=== PATIENT | male | born 1965 | race American Indian/Alaskan Native ===

== ENCOUNTER 2019-09-03 07:59 | Day surgery (SDC) | payer MEDICAID ==
--- NOTE | 2019-09-03 09:38 | Anesthesia Day of Surgery ---
Anesthesia Day of Surgery - Day of Surgery Patient Examined: Yes Patient H&P Reviewed: Yes Patient is NPO: Yes
--- NOTE | 2019-09-03 09:40 | Anesthesia Consultation ---
Anesthesia Consult and Med Hx Date of service: 09/03/19 - Airway Anesthetic Teeth Evaluation: Dentures (Upper and lower-in place), Edentulous ROM Head & Neck: Adequate Mental/Hyoid Distance: Adequate Mallampati Class: Class II Intubation Access Assessment: Probably Good - Pre-Operative Health Status ASA Pre-Surgery Classification: ASA3 Proposed Anesthetic Plan: MAC - Pulmonary Hx Smoking: Yes - Cardiovascular System Hx Hypertension: Yes Hx Coronary Artery Disease: No (Pt reports negative ETT in 2017) - Central Nervous System Hx Seizures: Yes (Last one 07/2019) - Endocrine Hx Renal Disease: Yes (Kidney stones)
[2019-09-03] MEDS ORDERED: SODIUM CHLORIDE 0.9% 1000 ML 1,000 ML IV SCH (10:00)
[2019-09-03] MEDS ORDERED: PROPOFOL 200 MG/20 ML VIAL IV ONE ×2 (10:25)
[2019-09-03] MEDS ORDERED: WATER FOR IRRIG STERILE 250 ML BOTTLE IR ONE (10:48)
--- NOTE | 2019-09-03 10:50 | Procedure Note ---
Date of procedure: 09/03/19 Pre-op diagnosis: Colon Polyp Screening/ F/H/O cancer Post-op diagnosis: other (No Colon Polyp or diverticular disease noted/ Minor,Internal Hemorrhoid) Procedure: Colonoscopy Anesthesia: MAC Surgeon: CHANELL RODRIGUEZ Estimated blood loss: none Pathology: none Condition: stable Disposition: same day (Resume home medication and follow up in 1 to 2 weeks ([phone]).)
--- NOTE | 2019-09-03 10:58 | Operative Report ---
PROCEDURE: Colonoscopy. INDICATIONS: The patient is a 54-year-old -French gentleman who has underlying history of seizure disorder, hypertension, and a family history of cancer. Colonoscopy was done as part of colon polyp screening. DESCRIPTION OF PROCEDURE: Procedure was done after getting informed consent with MAC anesthesia. Initial rectal exam was unremarkable. Instrument was passed through the rectum onto the cecum, which was identified with ileocecal valve and the appendiceal orifice. Visualization was fair to good. Cecum, ascending colon, transverse colon, descending colon, and sigmoid showed normal mucosa. There was no evidence of any polyps, colitis or diverticular disease and the rectum showed minor internal hemorrhoid on the retroverted view. There was no bleeding associated with the procedure. No complications associated with the procedure. ASSESSMENT: Colon polyp screening, family history of cancer. No colon polyps or diverticula noted. Minor internal hemorrhoid. PLAN: To have the patient resume home medications. Follow up in the office in 1-2 weeks' time. The procedure was done in the GI lab with the assistance of the GI lab team, which included EDDIE Marin, shayla Hernández, and with assistance of anesthesia. Thank you for the kind referral. JOB# [id number] ANNALISA/CHARANJIT
[2019-09-03] MEDS ORDERED: LIDOCAINE MPF (2%) 20 MG/1 ML VIAL 5 ML ONE (11:00)
[2019-09-03 11:21] VITALS: BP 115/85
--- NOTE | 2019-09-03 14:14 | Post Anesthesia Evaluation ---
- Post Anesthesia Evaluation Patient Participated: Yes Airway Patent: Yes Stable Respiratory Function: Yes Nausea/Vomiting: No Temp > 96.8F: Yes Pain Manageable: Yes Adequeate Hydration: Yes Anesthesia Complications: No Block Receding Appropriately: Not Applicable Patient on Ventilator: No
== END 2019-09-03 08:00 | disposition home or self-care (01) ==
LOC: GIO 07:59
DX: Z12.11 Encounter for screening for malignant neoplasm of colon (principal); K64.8 Other hemorrhoids; E78.00 Pure hypercholesterolemia, unspecified; I10 Essential (primary) hypertension; F17.210 Nicotine dependence, cigarettes, uncomplicated; Z87.442 Personal history of urinary calculi; Z96.641 Presence of right artificial hip joint; Z98.890 Other specified postprocedural states; Z80.0 Family history of malignant neoplasm of digestive organs; Z79.899 Other long term (current) drug therapy
CPT/HCPCS: 45378; J2704; J7030